=== PATIENT | male | born 1960 ===

== ENCOUNTER 2017-04-21 18:57 | Emergency (ER) | payer OTHER ==
[2017-04-21] MEDS ORDERED: Albuterol HFA INHALER* 8 gm MDI INH ONE ×2 (19:29→20:12)
[2017-04-21] MEDS ORDERED: Azithromycin TAB* 250 MG PO ONE (19:29)
--- NOTE | 2017-04-21 19:36 | UC ---
Mimi Carlos Emily, scribed for Cyril Timmons MD on 04/21/17 at 1925 . Respiratory Complaint HPI - HPI Summary HPI Summary: This patient is a 56 year old M presenting to urgent care with a chief complaint of cough that began 8 days ago. The patient rates the pain 3/10 in severity. Symptoms aggravated by nothing. Symptoms alleviated by nothing. Patient reports fever, chills, myalgia, sneezing, wheezing, and chest congestion. Pt reports having a negative flu test on 04/17/2017. - History of Current Complaint Chief Complaint: UCRespiratory Stated Complaint: FLU-LIKE SYMPTOMS Time Seen by Provider: 04/21/17 19:15 Hx Obtained From: Patient Onset/Duration: Sudden Onset, Lasting Weeks, Still Present Timing: Constant Severity Initially: Mild Severity Currently: Mild Pain Intensity: 3 Pain Scale Used: 0-10 Numeric Character: Cough: Nonproductive Aggravating Factors: Nothing Alleviating Factors: Nothing Associated Signs And Symptoms: Positive: Fever, Chills, Wheezing - Allergies/Home Medications Allergies/Adverse Reactions: Allergies Allergy/AdvReac Type Severity Reaction Status Date / Time No Known Allergies Allergy Verified 04/21/17 19:06 Home Medications: Home Medications Ibuprofen TAB* [Advil TAB*] 400 mg PO ONCE PRN 04/21/17 [History Confirmed 04/21] PMH/Surg Hx/FS Hx/Imm Hx Previously Healthy: Yes Endocrine History: Other Other Endocrine History: Negative Respiratory History: Other Other Respiratory History: Negative asthma - Surgical History Surgical History: Yes Surgery Procedure, Year, and Place: appendix removed 1971 - Family History Known Family History: Positive: Hypertension, Other - AFib - Social History Occupation: Employed Full-time Lives: With Family Alcohol Use: Daily Alcohol Amount: 2 GLASSES RED WINE/DAY Substance Use Type: None Smoking Status (MU): Never Smoked Tobacco Review of Systems Constitutional: Fever, Chills Respiratory: Cough, Other - Positive sneezing, wheezing, and chest congestion Musculoskeletal: Myalgia All Other Systems Reviewed And Are Negative: Yes Physical Exam - Summary Physical Exam Summary: General: mildly ill-appearing, no pain distress Skin: warm, color reflects adequate perfusion, dry Head: normal Eyes: EOMI, IBRAHIMA ENT: Positive rhinorrhea Neck: supple, nontender Respiratory: breath sounds present, rare wheeze Cardiovascular: RRR Abdomen: soft, nontender Bowel: present Musculoskeletal: normal, strength/ROM intact Neurological: normal, sensory/motor intact, A&O x3 Psychological: affect/mood appropriate Triage Information Reviewed: Yes Vital Signs: Initial Vital Signs Temp 97.3 F 04/21/17 19:03 Pulse 78 04/21/17 19:03 Resp 16 04/21/17 19:03 BP 150/86 04/21/17 19:03 Pulse Ox 97 04/21/17 19:03 Vital Signs Reviewed: Yes Diagnostic Evaluation - Laboratory O2 Sat by Pulse Oximetry: 97 Respiratory Course/Dx - Course Course Of Treatment: BP noted and advised to follow up with PCP. Medications reviewed. Allergies reviewed. - Differential Dx/Diagnosis Provider Diagnoses: BRONCHITIS WITH BRONCHOSPASM. Elevated BP without diagnosis of HTN. Discharge - Discharge Plan Condition: Stable Disposition: HOME Prescriptions: Azithromycin TAB* [Zithromax TAB (Z-IRVIN) 250 mg #6 tabs] 250 mg PO DAILY #4 tab Patient Education Materials: Acute Bronchitis (ED), Bronchospasm (ED) Referrals: [facility] [place] [facility] [Outside] Additional Instructions: FOLLOW UP WITH YOUR DOCTOR. GET RECHECKED FOR ANY WORSENING OF YOUR CONDITION OR QUESTIONS OR CONCERNS. YOUR BLOOD PRESSURE WAS ELEVATED DURING TODAY'S VISIT; FOLLOW UP WITH YOUR PCP WITHIN ONE WEEK FOR FURTHER EVALUATION. The documentation as recorded by the Mimi castillo Emily accurately reflects the service I personally performed and the decisions made by me, Cyril Timmons MD.
[2017-04-21 19:57] VITALS: BP 137/87
== END 2017-04-21 19:54 | disposition home or self-care (01) ==
LOC: UCEAST 18:57
DX: J20.9 Acute bronchitis, unspecified (principal); R03.0 Elevated blood-pressure reading, without diagnosis of hypertension
CPT/HCPCS: 99213; A9270-GY; G0463